=== PATIENT | female | born 2000 | race Caucasian/White ===

== ENCOUNTER 2021-04-09 07:11 | Emergency (ER) | payer SELFPAY ==
[~2021-04-09] VITALS: Ht 167.6 cm; Wt 68.2 kg
[2021-04-09 08:06] VITALS: BP 131/78
== END 2021-04-09 08:15 | disposition home or self-care (01) ==
LOC: EMS 07:14
DX: H60.92 Unspecified otitis externa, left ear (principal)
CPT/HCPCS: 99283